=== PATIENT | female | born 1965 | race Hispanic/Latino ===

== ENCOUNTER 2024-07-09 06:48 | Day surgery (SDC) | payer OTHER ==
[~2024-07-09] VITALS: Ht 165.1 cm; Wt 81.6 kg
[2024-07-09] MEDS ORDERED: NEURONTIN800 MG PO (07:07)
[2024-07-09] MEDS ORDERED: ACETAMINOPHEN-CODEIN (07:13)
[2024-07-09] MEDS ORDERED: DICLOFENAC SODI75 MG PO (07:14)
[2024-07-09] MEDS ORDERED: METFORMIN500 M2 PO (07:14)
[2024-07-09] MEDS ORDERED: SODIUM CHLORIDE 0.9% 10 ML SYR ONE ×2 (07:22→07:26)
[2024-07-09] MEDS ORDERED: BUPIVACAINE HCL PF 0.5 % 50 MG/10 ML SDV ONE (08:05)
[2024-07-09] MEDS ORDERED: TRIAMCINOLONE ACETONIDE 40 MG/ML ML ONE (08:05)
[2024-07-09] MEDS ORDERED: LIDOCAINE HCL 1% (10MG/ML) 100 MG/10 ML MDV ONE (08:05)
[2024-07-09] MEDS ORDERED: MIDAZOLAM HCL 2 MG/2 ML VIAL ONE (08:10)
[2024-07-09 08:53] VITALS: BP 109/69
== END 2024-07-09 08:48 | disposition home or self-care (01) ==
LOC: ORM 06:48
PROVIDERS: ATTEND Student in an Organized Health Care Education/Training Program
DX: M46.1 Sacroiliitis, not elsewhere classified (principal); G89.4 Chronic pain syndrome
CPT/HCPCS: J3301

== ENCOUNTER 2024-12-03 06:25 | Day surgery (SDC) | payer OTHER ==
[~2024-12-03 06:25] MED LIST: ACETAMINOPHEN-CODEIN; DICLOFENAC SODI75 MG PO; METFORMIN500 M2 PO; NEURONTIN800 MG PO
[2024-12-03] MEDS ORDERED: SODIUM CHLORIDE 0.9% 10 ML SYR ONE ×2 (06:33→07:59)
[2024-12-03] MEDS ORDERED: FAMOTIDINE20 M1 PO (07:05)
[2024-12-03] MEDS ORDERED: ASPERCREME LIDOCA41 TOP (07:06)
[2024-12-03] MEDS ORDERED: CRESTOR40 MG PO (07:06)
[2024-12-03] MEDS ORDERED: VITAMIN D-32000 UNI1 PO (07:07)
[2024-12-03] MEDS ORDERED: VIT C/BIOFLV1000 MG PO (07:08)
[2024-12-03] MEDS ORDERED: VITAMIN B 12100 MCG PO (07:08)
[2024-12-03] MEDS ORDERED: MIDAZOLAM HCL 2 MG/2 ML VIAL ONE (07:37)
[2024-12-03] MEDS ORDERED: LIDOCAINE HCL 1% (10MG/ML) 100 MG/10 ML MDV ONE (09:27)
[2024-12-03] MEDS ORDERED: TRIAMCINOLONE ACETONIDE 40 MG/ML ML ONE (09:27)
[2024-12-03 10:01] VITALS: BP 121/78
== END 2024-12-03 08:12 | disposition home or self-care (01) ==
LOC: ORM 06:25
PROVIDERS: ATTEND Student in an Organized Health Care Education/Training Program
DX: M46.1 Sacroiliitis, not elsewhere classified (principal); G89.4 Chronic pain syndrome
CPT/HCPCS: J3301